=== PATIENT | female | born 1975 | race Caucasian/White ===

== ENCOUNTER 2020-02-17 12:23 | Emergency (ER) | payer OTHER ==
[~2020-02-17] VITALS: Ht 160 cm; Wt 88.5 kg
[~2020-02-17 12:23] MED LIST: KEFLEX500 MG PO; LEVOTHYROXIN0.112 M1 PO; NAPROSYN500 MG PO; PERCOCET 7.5-31 EACH PO; ROBAXIN500 MG PO; TRAMADOL 50 MG50 MG PO; TUMS PO
[2020-02-17] MEDS ORDERED: ROPINIROLE HCL2 M1 PO (12:48)
[2020-02-17] MEDS ORDERED: NORCO 5-325 TA1 EAC2 PO (13:30)
[2020-02-17 14:10] VITALS: BP 124/86
== END 2020-02-17 14:10 | disposition home or self-care (01) ==
LOC: M.ERS 12:23
DX: S92.424A Nondisplaced fracture of distal phalanx of right great toe, initial encounter for closed fracture (principal); Z79.899 Other long term (current) drug therapy; W20.8XXA Other cause of strike by thrown, projected or falling object, initial encounter; Y93.89 Activity, other specified; Y92.89 Other specified places as the place of occurrence of the external cause; Y99.8 Other external cause status